=== PATIENT | female | born 1945 | race Caucasian/White ===

== ENCOUNTER 2016-11-19 15:24 | Inpatient (IN) | payer MEDICARE ==
[~2016-11-19] VITALS: Ht 162.6 cm; Wt 61.1 kg
[~2016-11-19 15:24] MED LIST: ASPI-621 PO; ATOR10TA PO; ATOR20TA9 PO; CARV12.52 PO; CARV6.252 PO; HYDR25TA6 PO; LEVO25TA2 PO; LISI-167 PO; LISI-170 PO; LISI1TAB7 PO; OMEP20TA62 PO
[2016-11-19] MEDS ORDERED: SODIUM CHLORIDE 0.9% 1,000ML IVBOLUS ONE (16:00)
[2016-11-19] MEDS ORDERED: SODIUM CHLORIDE FLUSH 10ML SYR IVF ONE ×2 (16:00→19:00)
[2016-11-19] MEDS ORDERED: PLEASE ENTER WEIGHT MC SCH (16:30)
[2016-11-19 16:40] LABS: BLOOD UREA NITROGEN 22 mg/dL (7-18)
[2016-11-19 16:44] LABS: HEMOGLOBIN 11.9 g/dL (11.7-16.4)
[2016-11-19 16:45] LABS: ASPARTATE AMINO TRANSFERASE 14 U/L (15-37)
[2016-11-19 17:00] LABS: IS PT STATUS REG ER OR PRE ER? YES
[2016-11-19] MEDS ORDERED: POTASSIUM CHLORIDE 40 MEQ in SODIUM CHLORIDE 0.9% 1,000 ML IV ONE (17:07)
[2016-11-19] MEDS ORDERED: POTASSIUM CHLORIDE 20 MEQ TAB.ER.PRT ONE (17:18)
[2016-11-19] MEDS ORDERED: NS + 40MEQ KCL 1,000 ML IV ONE (17:18)
[2016-11-19] MEDS ORDERED: POTASSIUM CHLORIDE 20 MEQ TAB.ER.PRT PO ONE (17:30)
[2016-11-19] MEDS ORDERED: MAGNESIUM SULFATE 1 GM in SODIUM CHLORIDE 0.9% 50 ML IV ONE (17:30)
[2016-11-19] MEDS ORDERED: CALCIUM GLUCONATE 4.6 MEQ in SODIUM CHLORIDE 0.9% 50 ML IV SCH (18:00)
[2016-11-19] MEDS ORDERED: CALCIUM GLUCONATE 0.46MEQ/1ML IVPush ONE (18:00)
[2016-11-19 20:19] VITALS: BP 150/63
[2016-11-19] MEDS ORDERED: ACETAMINOPHEN 325 MG TABLET PO PRN (21:00)
[2016-11-19] MEDS: ENOXAPARIN 40 MG/0.4 ML SQ SCH (21:00)
[2016-11-19] MEDS ORDERED: TEMAZEPAM 15 MG CAPSULE PO PRN (21:00)
[2016-11-19] MEDS: ATORVASTATIN 20 MG TABLET PO SCH (21:00)
[2016-11-19 21:52] LABS: IS PT STATUS REG ER OR PRE ER? NO
[2016-11-19 22:21] VITALS: BP 150/63
[2016-11-20 02:04] VITALS: BP 155/63
[2016-11-20 02:57] LABS: HEMOGLOBIN 10.7 g/dL (11.7-16.4)
[2016-11-20 03:10] LABS: ASPARTATE AMINO TRANSFERASE 9 U/L (15-37); BLOOD UREA NITROGEN 18 mg/dL (7-18)
[2016-11-20 03:13] LABS: IS PT STATUS REG ER OR PRE ER? NO
[2016-11-20] MEDS ORDERED: CALCIUM GLUCONATE 0.46MEQ/1ML IVPush ONE (04:00)
[2016-11-20] MEDS ORDERED: MAGNESIUM SULFATE 1 GM in SODIUM CHLORIDE 0.9% 50 ML IV ONE (04:30)
[2016-11-20] MEDS ORDERED: CALCIUM GLUCONATE 4.6 MEQ in SODIUM CHLORIDE 0.9% 50 ML IV ONE (04:30)
[2016-11-20] MEDS: ASPIRIN 81 MG TABLET EC PO SCH (05:28)
[2016-11-20] MEDS: POTASSIUM CHLORIDE 20 MEQ TAB.ER.PRT PO SCH ×3 (05:28→16:00)
[2016-11-20 06:36] VITALS: BP 119/61
[2016-11-20] MEDS ORDERED: HYDROCHLOROTHIAZIDE 25 MG TABLET PO SCH (09:00)
[2016-11-20] MEDS: CALCIUM CARBONATE 500 MG TABLET PO SCH ×2 (09:08→21:06)
[2016-11-20] MEDS: LISINOPRIL 20 MG TABLET PO SCH (09:09)
[2016-11-20] MEDS: CARVEDILOL 6.25 MG TABLET PO SCH ×2 (09:09→17:00)
[2016-11-20 09:50] LABS: IS PT STATUS REG ER OR PRE ER? NO
[2016-11-20] MEDS: NS + 40MEQ KCL 1,000 ML IV SCH (11:30)
[2016-11-20 12:38] VITALS: BP 132/68
[2016-11-20 17:27] LABS: BLOOD UREA NITROGEN 16 mg/dL (7-18)
[2016-11-20 17:33] LABS: IS PT STATUS REG ER OR PRE ER? NO
[2016-11-20 18:56] VITALS: BP 150/65
[2016-11-20] MEDS: ENOXAPARIN 40 MG/0.4 ML SQ SCH (21:06)
[2016-11-20] MEDS: ATORVASTATIN 20 MG TABLET PO SCH (21:06)
[2016-11-20 21:25] LABS: IS PT STATUS REG ER OR PRE ER? NO
[2016-11-21] MEDS: NS + 40MEQ KCL 1,000 ML IV SCH ×2 (01:11→20:21)
[2016-11-21 02:04] VITALS: BP 144/75
[2016-11-21] MEDS: ASPIRIN 81 MG TABLET EC PO SCH (04:51)
[2016-11-21 06:48] VITALS: BP 152/69
[2016-11-21] MEDS: CARVEDILOL 6.25 MG TABLET PO SCH ×2 (08:00→17:00)
[2016-11-21] MEDS: THIAMINE 100MG TABLET PO SCH (09:47)
[2016-11-21] MEDS: LISINOPRIL 20 MG TABLET PO SCH (09:48)
[2016-11-21] MEDS: CALCIUM CARBONATE 500 MG TABLET PO SCH ×2 (09:48→20:22)
[2016-11-21 12:34] VITALS: BP 157/73
[2016-11-21 19:07] VITALS: BP 133/70
[2016-11-21] MEDS: ATORVASTATIN 20 MG TABLET PO SCH (20:21)
[2016-11-21] MEDS: ENOXAPARIN 40 MG/0.4 ML SQ SCH (20:22)
[2016-11-22 01:13] VITALS: BP 151/57
[2016-11-22] MEDS: ASPIRIN 81 MG TABLET EC PO SCH (06:07)
[2016-11-22 06:51] VITALS: BP 152/68
[2016-11-22] MEDS: LISINOPRIL 20 MG TABLET PO SCH (08:38)
[2016-11-22] MEDS: CALCIUM CARBONATE 500 MG TABLET PO SCH (08:38)
[2016-11-22] MEDS: THIAMINE 100MG TABLET PO SCH (08:38)
[2016-11-22 08:51] LABS: BLOOD UREA NITROGEN 8 mg/dL (7-18)
[2016-11-22] MEDS ORDERED: AMLODIPINE 5 MG TABLET PO SCH (09:00)
[2016-11-22] MEDS ORDERED: AMLO5TAB2 PO (12:40)
== END 2016-11-22 14:47 | disposition home health service (06) | DRG 640 ==
LOC: ED 17:59 → EDIP 18:10 → 4WST 18:47 → 4EST 11-22 08:38 → DCLOUNGE 11-22 14:19
PROVIDERS: ADMIT Internal Medicine; ATTEND Internal Medicine
DX: E87.6 Hypokalemia (principal); G93.41 Metabolic encephalopathy; Q21.1 Atrial septal defect; Q21.0 Ventricular septal defect; I24.8 Other forms of acute ischemic heart disease; E83.51 Hypocalcemia; I12.9 Hypertensive chronic kidney disease with stage 1 through stage 4 chronic kidney disease, or unspecified chronic kidney disease; I25.10 Atherosclerotic heart disease of native coronary artery without angina pectoris; N18.9 Chronic kidney disease, unspecified; R06.4 Hyperventilation; F41.9 Anxiety disorder, unspecified; Z86.73 Personal history of transient ischemic attack (TIA), and cerebral infarction without residual deficits; Z82.49 Family history of ischemic heart disease and other diseases of the circulatory system; Z83.3 Family history of diabetes mellitus; Z88.5 Allergy status to narcotic agent; E87.8 Other disorders of electrolyte and fluid balance, not elsewhere classified
CPT/HCPCS: 36415; 80048; 80053; 81003; 82140; 82150; 82306; 82310; 82330; 82570; 82652; 83690; 83735; 83970; 84100; 84300; 84439; 84443; 84484; 85025; 93005; 96361; 96365; J0610; J1650; J3475; J3480; J7030

== ENCOUNTER → 2016-11-25 | Outpatient (CLI) | payer MEDICARE ==
[~2016-11-25] MED LIST changes: +AMLO5TAB2 PO
[2016-11-25 09:53] LABS: BLOOD UREA NITROGEN 12 mg/dL (7-18)
[2016-11-25 10:04] LABS: ASPARTATE AMINO TRANSFERASE 14 U/L (15-37)
[2016-11-25 10:25] LABS: HEMOGLOBIN 12.7 g/dL (11.7-16.4)
[2016-11-25 10:26] LABS: DIFF TOTAL CELLS COUNTED 100 CELL DIFF
[2016-11-25 10:29] LABS: VERIFY COUNTS? YES
== END | disposition home or self-care (01) ==
LOC: LAB 08:54
PROVIDERS: ATTEND Registered Nurse
DX: E78.5 Hyperlipidemia, unspecified (principal); E83.51 Hypocalcemia; E87.6 Hypokalemia; I10 Essential (primary) hypertension
CPT/HCPCS: 36415; 80053; 80061; 82306; 84436; 84443; 84481; 85025

== ENCOUNTER 2017-08-03 15:31 | Observation (INO) | payer MEDICARE ==
[~2017-08-03] VITALS: Ht 162.6 cm; Wt 58.0 kg
[2017-08-03] MEDS ORDERED: MORPHINE SULFATE 4 MG/ML, 1ML IVPush PRN (16:00)
[2017-08-03] MEDS ORDERED: PLEASE ENTER ALLERGIES MC SCH ×2 (16:00)
[2017-08-03] MEDS ORDERED: PLEASE ENTER HEIGHT AND WEIGHT MC SCH (16:00)
[2017-08-03] MEDS ORDERED: SODIUM CHLORIDE FLUSH 10ML SYR IVF ONE (16:00)
[2017-08-03] MEDS ORDERED: MORPHINE SULFATE 4 MG/ML, 1ML ONE (16:06)
[2017-08-03 16:11] LABS: HEMATOCRIT 38.2 % (34.6-47.8); HEMOGLOBIN 12.8 g/dL (11.7-16.4); WHITE BLOOD COUNT 7.4 x10^3/uL (3.4-10)
[2017-08-03 16:24] LABS: BLOOD UREA NITROGEN 21 mg/dL (7-18)
[2017-08-03 16:29] LABS: ASPARTATE AMINO TRANSFERASE 6 U/L (15-37); IS PT STATUS REG ER OR PRE ER? YES
[2017-08-03] MEDS ORDERED: hydrALAzine 20 MG/ML, 1ML IVPush PRN (20:00)
[2017-08-03] MEDS ORDERED: ONDANSETRON ODT 4 MG PO PRN (20:00)
[2017-08-03] MEDS ORDERED: POTASSIUM CHLORIDE 20 MEQ TAB.ER.PRT PO ONE (20:00)
[2017-08-03] MEDS ORDERED: ACETAMINOPHEN 325 MG TABLET PO PRN (20:00)
[2017-08-03] MEDS ORDERED: NITROGLYCERIN 0.4 MG BOTTLE (25 TABS) SL PRN (20:00)
[2017-08-03] MEDS ORDERED: DIPHENHYDRAMINE 25 MG CAPSULE PO PRN (20:00)
[2017-08-03] MEDS ORDERED: KETOROLAC 30 MG/1 ML IM PRN (20:00)
[2017-08-03] MEDS ORDERED: DOCUSATE 100 MG CAPSULE PO PRN (20:00)
[2017-08-03] MEDS ORDERED: MAGNESIUM SULFATE PMX 4GM/100M 100 ML IV ONE (21:00)
[2017-08-03 22:17] LABS: IS PT STATUS REG ER OR PRE ER? YES
[2017-08-03 22:36] VITALS: BP 107/58
[2017-08-03] MEDS: ENOXAPARIN 40 MG/0.4 ML SQ SCH (22:56)
[2017-08-03] MEDS: ATORVASTATIN 20 MG TABLET PO SCH (22:56)
[2017-08-03 23:42] VITALS: BP 107/58
[2017-08-04 01:21] VITALS: BP 93/57
[2017-08-04 04:43] LABS: HEMATOCRIT 34.1 % (34.6-47.8); HEMOGLOBIN 11.5 g/dL (11.7-16.4); WHITE BLOOD COUNT 6.8 x10^3/uL (3.4-10)
[2017-08-04 04:50] LABS: BLOOD UREA NITROGEN 21 mg/dL (7-18)
[2017-08-04 04:57] LABS: IS PT STATUS REG ER OR PRE ER? NO
[2017-08-04 06:31] VITALS: BP 92/47
[2017-08-04] MEDS ORDERED: MAGNESIUM SULFATE PMX 2GM/50ML 50 ML IV ONE (08:30)
[2017-08-04] MEDS ORDERED: HYDROCHLOROTHIAZIDE 25 MG TABLET PO SCH (09:00)
[2017-08-04] MEDS ORDERED: AMLODIPINE 5 MG TABLET PO SCH (09:00)
[2017-08-04] MEDS: ASPIRIN 81 MG TABLET EC PO SCH (09:33)
[2017-08-04] MEDS: MAGNESIUM OXIDE 400 MG TABLET PO SCH ×2 (09:33→22:18)
[2017-08-04] MEDS: OMEPRAZOLE 20 MG CAPSULE.DR PO SCH (09:33)
[2017-08-04] MEDS: POTASSIUM CHLORIDE 10 MEQ in SODIUM CHLORIDE 0.9% 1,000 ML IV SCH (09:33)
[2017-08-04] MEDS ORDERED: LIDOCAINE 1%, 20ML ONE (10:09)
[2017-08-04 12:29] VITALS: BP 88/48
[2017-08-04 15:00] VITALS: BP 86/44
[2017-08-04] MEDS ORDERED: SODIUM CHLORIDE 0.9% 500 ML IV SCH (15:30)
[2017-08-04 16:30] VITALS: BP 92/54
[2017-08-04 19:33] VITALS: BP 94/51
[2017-08-04] MEDS: ATORVASTATIN 20 MG TABLET PO SCH (22:18)
[2017-08-04] MEDS: ENOXAPARIN 40 MG/0.4 ML SQ SCH (22:19)
[2017-08-05 01:02] VITALS: BP 97/55
[2017-08-05] MEDS: POTASSIUM CHLORIDE 10 MEQ in SODIUM CHLORIDE 0.9% 1,000 ML IV SCH ×2 (02:00→08:41)
[2017-08-05 05:21] LABS: ASPARTATE AMINO TRANSFERASE 10 U/L (15-37); BLOOD UREA NITROGEN 25 mg/dL (7-18)
[2017-08-05 05:23] LABS: HEMATOCRIT 33.5 % (34.6-47.8); HEMOGLOBIN 11.3 g/dL (11.7-16.4); WHITE BLOOD COUNT 7.2 x10^3/uL (3.4-10)
[2017-08-05 06:27] VITALS: BP 108/56
[2017-08-05] MEDS: MAGNESIUM OXIDE 400 MG TABLET PO SCH (08:40)
[2017-08-05] MEDS: OMEPRAZOLE 20 MG CAPSULE.DR PO SCH (08:40)
[2017-08-05] MEDS: ASPIRIN 81 MG TABLET EC PO SCH (08:40)
[2017-08-05 12:57] VITALS: BP 94/65
== END 2017-08-05 14:05 | disposition home or self-care (01) ==
LOC: ED 16:13 → INTOOBSV 18:20 → EDIP 18:20 → 5SO 22:20
PROVIDERS: ADMIT Surgery; ATTEND Surgery
DX: I25.10 Atherosclerotic heart disease of native coronary artery without angina pectoris (principal); E87.6 Hypokalemia; E83.42 Hypomagnesemia; I13.10 Hypertensive heart and chronic kidney disease without heart failure, with stage 1 through stage 4 chronic kidney disease, or unspecified chronic kidney disease; N18.9 Chronic kidney disease, unspecified; D64.9 Anemia, unspecified; E04.2 Nontoxic multinodular goiter; I08.0 Rheumatic disorders of both mitral and aortic valves; I25.2 Old myocardial infarction; I47.1 Supraventricular tachycardia; K21.9 Gastro-esophageal reflux disease without esophagitis; K44.9 Diaphragmatic hernia without obstruction or gangrene; Q21.0 Ventricular septal defect; Z83.3 Family history of diabetes mellitus; Z86.73 Personal history of transient ischemic attack (TIA), and cerebral infarction without residual deficits
CPT/HCPCS: 36415; 38505; 71010; 71250; 76942; 80048; 80053; 83735; 83880; 84484; 85025; 85379; 85610; 85730; 87040; 88184; 88185; 88305; 88342; 93005; 93306; 96365; 96366; 96367; 96372; 96375; 99285; G0378; J1650; J1885; J3475; J3480; J3490; J7030; J7040; G0461

== ENCOUNTER 2018-01-20 09:39 | Inpatient (IN) | payer MEDICARE ==
[~2018-01-20] VITALS: Ht 157.5 cm; Wt 64.6 kg
[2018-01-20] MEDS ORDERED: METO25TA35 PO (09:50)
[2018-01-20] MEDS ORDERED: ONDANSETRON ODT 4 MG ONE (10:19)
[2018-01-20] MEDS ORDERED: MORPHINE SULFATE 4 MG/ML, 1ML ONE ×3 (10:19→13:29)
[2018-01-20] MEDS: MORPHINE SULFATE 4 MG/ML, 1ML IVPush PRN ×2 (10:23→11:01)
[2018-01-20] MEDS ORDERED: ONDANSETRON ODT 4 MG PO ONE (10:30)
[2018-01-20] MEDS ORDERED: SODIUM CHLORIDE FLUSH 10ML SYR IVF ONE (10:30)
[2018-01-20 11:23] LABS: BASOPHILS # (AUTO) 0.06 x10^3/uL (0-0.1); BASOPHILS % (AUTO) 1 % (0-1); EOSINOPHILS % (AUTO) 3 % (1-7); LYMPHOCYTES # (AUTO) 1.22 x10^3/uL (1-3.4); LYMPHOCYTES % (AUTO) 11 % (22-44); MD NO; MEAN CORPUSCULAR HEMOGLOBIN 30.3 pg (27.0-34.8); MEAN CORPUSCULAR HGB CONC 32.7 g/dL (32.4-35.8); MEAN CORPUSCULAR VOLUME 92.6 fL (80-100); MEAN PLATELET VOLUME 11.2 fL (7.4-10.4); MONOCYTES # (AUTO) 0.79 x10^3/uL (0.2-0.8); MONOCYTES % (AUTO) 7 % (2-9); NEUTROPHILS # (AUTO) 9.09 x10^3/uL (1.8-6.8); NEUTROPHILS % (AUTO) 79 % (42-75); PLATELET COUNT 216 x10^3/uL (130-400); RED BLOOD COUNT 4.22 x10^6/uL (3.82-5.3); RED CELL DISTRIBUTION WIDTH 15.2 % (9.6-15.2)
[2018-01-20 11:33] LABS: ALBUMIN 3.4 g/dL (3.4-5.0); ANION GAP 7 mmol/L (5-15); CALCIUM 7.6 mg/dL (8.5-10.1); CHLORIDE 107 mmol/L (98-107)
[2018-01-20 11:36] LABS: ALANINE AMINOTRANSFERASE 15 U/L (12-78); ALKALINE PHOSPHATASE 73 U/L (45-117); BILIRUBIN,TOTAL 0.8 mg/dL (0.2-1.0); CREATININE 1.01 mg/dL (0.55-1.02); TOTAL PROTEIN 6.5 g/dL (6.4-8.2)
[2018-01-20] MEDS ORDERED: SODIUM CHLORIDE 0.9% 1,000 ML IV ONE (11:48)
[2018-01-20 11:50] LABS: INTERNATIONAL NORMALIZED RATIO 1.05 (0.93-1.1); PROTHROMBIN TIME 10.8 Seconds (9.6-11.5)
[2018-01-20] MEDS ORDERED: SODIUM CHLORIDE FLUSH 10ML SYR IVF PRN (12:00)
[2018-01-20] MEDS ORDERED: DOCUSATE 100 MG CAPSULE PO PRN (13:30)
[2018-01-20] MEDS ORDERED: ONDANSETRON 2MG/ML, 2ML IVPush PRN (13:30)
[2018-01-20] MEDS ORDERED: MORPHINE SULFATE 4 MG/ML, 1ML IVPush ONE (13:30)
[2018-01-20] MEDS ORDERED: hydrALAzine 20 MG/ML, 1ML IVPush PRN (13:30)
[2018-01-20] MEDS ORDERED: GUAIFENESIN/DM 200-20MG, 10ML UDC PO PRN (14:00)
[2018-01-20 14:08] VITALS: BP 179/78
[2018-01-20] MEDS: morphine SULFATE 10 MG/ML, 1ML IVPush PRN ×2 (15:10→17:43)
[2018-01-20] MEDS: D5%-LACTATED RINGERS 1,000 ML IV SCH (15:11)
[2018-01-20] MEDS ORDERED: MIDAZOLAM 1 MG/ML, 2ML ONE (18:01)
[2018-01-20] MEDS ORDERED: FENTANYL PF 100 MCG/2ML ONE (18:01)
[2018-01-20] MEDS ORDERED: EPHEDRINE 50 MG/ML, 1ML ONE (18:27)
[2018-01-20] MEDS ORDERED: CEFAZOLIN 1,000 MG ONE (18:27)
[2018-01-20] MEDS ORDERED: ROCURONIUM 10MG/ML,5ML ONE (18:27)
[2018-01-20] MEDS ORDERED: SUCCINYLCHOLINE 20 MG/ML, 10ML ONE (18:27)
[2018-01-20] MEDS ORDERED: PHENYLEPHRINE 10 MG/ML ONE (18:27)
[2018-01-20] MEDS ORDERED: PROPOFOL 10 MG/ML, 20ML ONE (18:27)
[2018-01-20] MEDS ORDERED: DEXAMETHASONE 4 MG/ML, 1ML ONE (18:27)
[2018-01-20 21:00] VITALS: BP 131/59
[2018-01-20] MEDS: METOPROLOL TARTRATE 25 MG TABLET PO SCH (21:00)
[2018-01-20] MEDS: ATORVASTATIN 20 MG TABLET PO SCH (21:00)
[2018-01-21] VITALS: BP 83/59
[2018-01-21] MEDS: morphine SULFATE 10 MG/ML, 1ML IVPush PRN ×3 (02:54→19:02)
[2018-01-21] MEDS: D5%-LACTATED RINGERS 1,000 ML IV SCH (03:23)
[2018-01-21 04:00] VITALS: BP 100/64
[2018-01-21 05:32] LABS: CHLORIDE 107 mmol/L (98-107)
[2018-01-21] MEDS: ACETAMINOPHEN 325 MG TABLET PO PRN ×2 (05:42→16:22)
[2018-01-21] MEDS: ASPIRIN 81 MG TABLET EC PO SCH (05:42)
[2018-01-21 05:59] LABS: ANION GAP 12 mmol/L (5-15); CALCIUM 6.8 mg/dL (8.5-10.1); CREATININE 1.38 mg/dL (0.55-1.02)
[2018-01-21 06:17] LABS: MD YES; MEAN CORPUSCULAR HEMOGLOBIN 30.9 pg (27.0-34.8); MEAN CORPUSCULAR HGB CONC 32.9 g/dL (32.4-35.8); MEAN CORPUSCULAR VOLUME 93.8 fL (80-100); MEAN PLATELET VOLUME 11.3 fL (7.4-10.4); PLATELET COUNT 219 x10^3/uL (130-400); RED BLOOD COUNT 3.13 x10^6/uL (3.82-5.3); RED CELL DISTRIBUTION WIDTH 15.7 % (9.6-15.2)
[2018-01-21 06:23] LABS: BAND#(MANUAL) 2.32 x10^3/uL; BANDS%(MANUAL) 16 % (0-7); LYMPH#(MANUAL) 1.45 x10^3/uL (1-3.4); LYMPHS% (MANUAL) 10 % (22-44); MONOS#(MANUAL) 0.15 x10^3/uL (0.3-2.7); MONOS% (MANUAL) 1 % (2-9); SEG#(MANUAL) 10.59 x10^3/uL (1.8-6.8); SEGS% (MANUAL) 73 % (42-75)
[2018-01-21 06:24] LABS: <PLATELET ESTIMATE> ADEQUATE; <PLT MORPHOLOGY> NORMAL PLT MORPH; ANISOCYTOSIS 1+
[2018-01-21 06:50] VITALS: BP 95/52
[2018-01-21] MEDS: METOPROLOL TARTRATE 25 MG TABLET PO SCH (08:25)
[2018-01-21] MEDS: OMEPRAZOLE 20 MG CAPSULE.DR PO SCH (08:25)
[2018-01-21] MEDS ORDERED: MAGNESIUM SULFATE PMX 2GM/50ML 50 ML IV ONE (09:00)
[2018-01-21] MEDS ORDERED: ENOXAPARIN 30 MG/0.3 ML SQ SCH (09:00)
[2018-01-21] MEDS ORDERED: ENOXAPARIN 40 MG/0.4 ML SQ SCH (09:00)
[2018-01-21 12:31] VITALS: BP 92/49
[2018-01-21] MEDS: SODIUM CHLORIDE 0.9% 1,000 ML IV SCH ×2 (13:12→20:53)
[2018-01-21] MEDS: CEFAZOLIN 1,000 MG in DEXTROSE 5% 50 ML IV SCH ×2 (13:13→20:52)
[2018-01-21] MEDS: FERROUS SULFATE 325 MG TABLET PO SCH (16:22)
[2018-01-21 16:27] VITALS: BP 102/55
[2018-01-21 20:39] VITALS: BP 96/54
[2018-01-21] MEDS: ATORVASTATIN 20 MG TABLET PO SCH (20:52)
[2018-01-21] MEDS ORDERED: METOPROLOL TARTRATE 25 MG TABLET PO SCH (21:00)
[2018-01-22] MEDS: morphine SULFATE 10 MG/ML, 1ML IVPush PRN (02:06)
[2018-01-22 02:33] VITALS: BP 125/82
[2018-01-22] MEDS: SODIUM CHLORIDE 0.9% 1,000 ML IV SCH (04:52)
[2018-01-22 05:23] LABS: ANION GAP 9 mmol/L (5-15); CALCIUM 6.5 mg/dL (8.5-10.1); CHLORIDE 109 mmol/L (98-107); CREATININE 2.04 mg/dL (0.55-1.02)
[2018-01-22] MEDS: ASPIRIN 81 MG TABLET EC PO SCH (05:47)
[2018-01-22 06:08] LABS: BASOPHILS # (AUTO) 0.03 x10^3/uL (0-0.1); BASOPHILS % (AUTO) 0 % (0-1); EOSINOPHILS # (AUTO) 0.03 x10^3/uL (0-0.4); EOSINOPHILS % (AUTO) 0 % (1-7); LYMPHOCYTES # (AUTO) 1.17 x10^3/uL (1-3.4); LYMPHOCYTES % (AUTO) 13 % (22-44); MD SCAN; MEAN CORPUSCULAR HEMOGLOBIN 30.9 pg (27.0-34.8); MEAN CORPUSCULAR VOLUME 93.7 fL (80-100); MEAN PLATELET VOLUME 11.7 fL (7.4-10.4); MONOCYTES # (AUTO) 0.86 x10^3/uL (0.2-0.8); MONOCYTES % (AUTO) 9 % (2-9); NEUTROPHILS # (AUTO) 7.05 x10^3/uL (1.8-6.8); NEUTROPHILS % (AUTO) 77 % (42-75); PLATELET COUNT 163 x10^3/uL (130-400); RED BLOOD COUNT 2.49 x10^6/uL (3.82-5.3); RED CELL DISTRIBUTION WIDTH 16.5 % (9.6-15.2)
[2018-01-22 06:47] VITALS: BP 102/55
[2018-01-22 07:57] VITALS: BP 126/53
[2018-01-22] MEDS: FERROUS SULFATE 325 MG TABLET PO SCH ×2 (08:02→17:04)
[2018-01-22] MEDS: ACETAMINOPHEN 325 MG TABLET PO PRN ×3 (08:02→23:39)
[2018-01-22] MEDS: OMEPRAZOLE 20 MG CAPSULE.DR PO SCH (08:02)
[2018-01-22] MEDS: METOPROLOL TARTRATE 25 MG TABLET PO SCH ×2 (08:04→21:24)
[2018-01-22] MEDS: HEPARIN 5,000 UNITS/ML, 1ML SQ SCH ×2 (09:58→17:04)
[2018-01-22 11:13] LABS: ALBUMIN 2.4 g/dL (3.4-5.0)
[2018-01-22 11:34] LABS: MICROSCOPIC NOT IND
[2018-01-22 11:36] LABS: CULTURE INDICATED? NO
[2018-01-22 12:01] VITALS: BP 94/49
[2018-01-22 18:45] VITALS: BP 149/65
[2018-01-22] MEDS: ATORVASTATIN 20 MG TABLET PO SCH (21:21)
[2018-01-23] VITALS (11 sets, daily range): BP systolic 100–159; BP diastolic 51–78
[2018-01-23] MEDS: HEPARIN 5,000 UNITS/ML, 1ML SQ SCH ×3 (02:29→18:10)
[2018-01-23 05:05] LABS: BASOPHILS # (AUTO) 0.03 x10^3/uL (0-0.1); BASOPHILS % (AUTO) 0 % (0-1); EOSINOPHILS # (AUTO) 0.12 x10^3/uL (0-0.4); EOSINOPHILS % (AUTO) 2 % (1-7); LYMPHOCYTES # (AUTO) 0.92 x10^3/uL (1-3.4); LYMPHOCYTES % (AUTO) 14 % (22-44); MD NO; MEAN CORPUSCULAR HEMOGLOBIN 30.9 pg (27.0-34.8); MEAN CORPUSCULAR HGB CONC 33.2 g/dL (32.4-35.8); MEAN CORPUSCULAR VOLUME 92.9 fL (80-100); MEAN PLATELET VOLUME 10.9 fL (7.4-10.4); MONOCYTES % (AUTO) 10 % (2-9); NEUTROPHILS # (AUTO) 4.92 x10^3/uL (1.8-6.8); NEUTROPHILS % (AUTO) 74 % (42-75); PLATELET COUNT 143 x10^3/uL (130-400); RED BLOOD COUNT 2.09 x10^6/uL (3.82-5.3); RED CELL DISTRIBUTION WIDTH 16.5 % (9.6-15.2)
[2018-01-23 05:25] LABS: CHLORIDE 114 mmol/L (98-107)
[2018-01-23] MEDS: ASPIRIN 81 MG TABLET EC PO SCH (05:27)
[2018-01-23 06:15] LABS: ANION GAP 12 mmol/L (5-15); CALCIUM 6.5 mg/dL (8.5-10.1); CREATININE 1.14 mg/dL (0.55-1.02)
[2018-01-23] MEDS: OMEPRAZOLE 20 MG CAPSULE.DR PO SCH (07:54)
[2018-01-23] MEDS: METOPROLOL TARTRATE 25 MG TABLET PO SCH ×2 (07:54→21:08)
[2018-01-23] MEDS: FERROUS SULFATE 325 MG TABLET PO SCH ×2 (07:54→16:32)
[2018-01-23] MEDS ORDERED: CALCIUM GLUCONATE 4.6 MEQ in SODIUM CHLORIDE 0.9% 50 ML IV ONE (09:00)
[2018-01-23] MEDS ORDERED: ERGOCALCIFEROL 50,000 UNIT CAPSULE PO SCH (09:00)
[2018-01-23] MEDS: ACETAMINOPHEN 325 MG TABLET PO PRN ×2 (13:34→22:32)
[2018-01-23] MEDS: ATORVASTATIN 20 MG TABLET PO SCH (21:07)
[2018-01-24 00:44] VITALS: BP 161/69
[2018-01-24] MEDS: HEPARIN 5,000 UNITS/ML, 1ML SQ SCH ×2 (02:08→10:25)
[2018-01-24] MEDS: ASPIRIN 81 MG TABLET EC PO SCH (04:46)
[2018-01-24 05:55] LABS: BASOPHILS # (AUTO) 0.03 x10^3/uL (0-0.1); BASOPHILS % (AUTO) 0 % (0-1); EOSINOPHILS # (AUTO) 0.22 x10^3/uL (0-0.4); EOSINOPHILS % (AUTO) 3 % (1-7); LYMPHOCYTES % (AUTO) 17 % (22-44); MD NO; MEAN CORPUSCULAR HEMOGLOBIN 31.3 pg (27.0-34.8); MEAN CORPUSCULAR HGB CONC 34.2 g/dL (32.4-35.8); MEAN CORPUSCULAR VOLUME 91.5 fL (80-100); MEAN PLATELET VOLUME 10.2 fL (7.4-10.4); MONOCYTES # (AUTO) 0.72 x10^3/uL (0.2-0.8); MONOCYTES % (AUTO) 10 % (2-9); NEUTROPHILS % (AUTO) 70 % (42-75); PLATELET COUNT 148 x10^3/uL (130-400); RED BLOOD COUNT 2.71 x10^6/uL (3.82-5.3); RED CELL DISTRIBUTION WIDTH 15.6 % (9.6-15.2)
[2018-01-24 06:03] LABS: ALBUMIN 2.1 g/dL (3.4-5.0); ANION GAP 8 mmol/L (5-15); CALCIUM 6.4 mg/dL (8.5-10.1); CHLORIDE 112 mmol/L (98-107); CREATININE 0.73 mg/dL (0.55-1.02)
[2018-01-24 08:18] VITALS: BP 171/89
[2018-01-24] MEDS: FERROUS SULFATE 325 MG TABLET PO SCH ×2 (08:20→16:53)
[2018-01-24] MEDS: METOPROLOL TARTRATE 25 MG TABLET PO SCH (08:20)
[2018-01-24] MEDS: OMEPRAZOLE 20 MG CAPSULE.DR PO SCH (08:20)
[2018-01-24] MEDS: ACETAMINOPHEN 325 MG TABLET PO PRN ×2 (08:23→13:12)
[2018-01-24] MEDS ORDERED: CALCITRIOL 0.25 MCG CAPSULE PO SCH (10:00)
[2018-01-24] MEDS ORDERED: NEUTRA PHOS K 250 MG TABLET PO SCH (10:00)
[2018-01-24] MEDS ORDERED: METOPROLOL TARTRATE 25 MG TABLET PO SCH (10:00)
[2018-01-24] MEDS ORDERED: METO25TA35 PO (10:13)
[2018-01-24] MEDS ORDERED: CALC0.25 PO (10:13)
[2018-01-24] MEDS ORDERED: ERGO500017 PO (10:13)
[2018-01-24] MEDS ORDERED: ENOX40SY4 SQ (10:15)
[2018-01-24] MEDS ORDERED: ASPI-621 PO (11:21)
[2018-01-24] MEDS ORDERED: ACET325T14 PO (11:22)
[2018-01-24 14:18] VITALS: BP 154/66
== END 2018-01-24 17:08 | DRG 480 ==
LOC: ED 11:23 → EDIP 11:48 → 4NOR 13:51
PROVIDERS: ADMIT Internal Medicine; ATTEND Hospitalist
PROC: 0QS736Z Reposition Left Upper Femur with Intramedullary Internal Fixation Device, Percutaneous Approach (ICD-10-PCS; principal; 2018-01-20 16:45)
PROC: 30233N1 Transfusion of Nonautologous Red Blood Cells into Peripheral Vein, Percutaneous Approach (ICD-10-PCS; 2018-01-23)
DX: S72.142A Displaced intertrochanteric fracture of left femur, initial encounter for closed fracture (principal); E43 Unspecified severe protein-calorie malnutrition; N17.9 Acute kidney failure, unspecified; I95.9 Hypotension, unspecified; E87.2 Acidosis; I13.10 Hypertensive heart and chronic kidney disease without heart failure, with stage 1 through stage 4 chronic kidney disease, or unspecified chronic kidney disease; D62 Acute posthemorrhagic anemia; D72.829 Elevated white blood cell count, unspecified; E20.9 Hypoparathyroidism, unspecified; Z68.26 Body mass index [BMI] 26.0-26.9, adult; I25.10 Atherosclerotic heart disease of native coronary artery without angina pectoris; K21.9 Gastro-esophageal reflux disease without esophagitis; N18.9 Chronic kidney disease, unspecified; W18.39XA Other fall on same level, initial encounter; Y93.89 Activity, other specified; Y92.89 Other specified places as the place of occurrence of the external cause; Y99.8 Other external cause status; Z79.82 Long term (current) use of aspirin; Z79.899 Other long term (current) drug therapy; Z83.3 Family history of diabetes mellitus; Z86.73 Personal history of transient ischemic attack (TIA), and cerebral infarction without residual deficits; Z82.49 Family history of ischemic heart disease and other diseases of the circulatory system
CPT/HCPCS: 36415; 71045; 76000; 76770; 80048; 80053; 81003; 82040; 82306; 82330; 82550; 82570; 82728; 83540; 83550; 83735; 83935; 83970; 84100; 84300; 84550; 85014; 85018; 85025; 85610; 85730; 86850; 86900; 86923; 87205; 93005; 96361; 96374; 96375; 96376; C1713; J0610; J0690; J1100; J1644; J1650; J2250; J2704; J3010; Q0162; J0330; J2270; J2370; J3475; J7030; J7121; P9016

== ENCOUNTER 2019-01-12 08:31 | Inpatient (IN) | payer MEDICARE ==
[~2019-01-12] VITALS: Ht 162.6 cm; Wt 50.4 kg
[~2019-01-12 08:31] MED LIST changes: +ACET325T14 PO; +AMLO-150 PO; -AMLO5TAB2 PO; -ASPI-621 PO; +ASPI81TA45 PO; +ATOR20TA37 PO; -ATOR20TA9 PO; +CALC0.25 PO; +ENOX40SY4 SQ; +ERGO500017 PO; +METO25TA35 PO
[2019-01-12 08:47] LABS: BASOPHILS # (AUTO) 0.05 x10^3/uL (0-0.1); BASOPHILS % (AUTO) 1 % (0-1); EOSINOPHILS # (AUTO) 0.25 x10^3/uL (0-0.4); EOSINOPHILS % (AUTO) 3 % (1-7); LYMPHOCYTES # (AUTO) 2.96 x10^3/uL (1-3.4); LYMPHOCYTES % (AUTO) 33 % (22-44); MD NO; MEAN CORPUSCULAR HEMOGLOBIN 31.6 pg (27.0-34.8); MEAN CORPUSCULAR HGB CONC 31.6 g/dL (32.4-35.8); MEAN CORPUSCULAR VOLUME 100.1 fL (80-100); MEAN PLATELET VOLUME 11.1 fL (7.4-10.4); MONOCYTES # (AUTO) 0.84 x10^3/uL (0.2-0.8); MONOCYTES % (AUTO) 9 % (2-9); NEUTROPHILS # (AUTO) 4.97 x10^3/uL (1.8-6.8); NEUTROPHILS % (AUTO) 55 % (42-75); PLATELET COUNT 140 x10^3/uL (130-400); RED BLOOD COUNT 4.35 x10^6/uL (3.82-5.3); RED CELL DISTRIBUTION WIDTH 14.9 % (9.6-15.2)
[2019-01-12] MEDS ORDERED: SODIUM CHLORIDE FLUSH 10ML SYR IVF ONE (09:00)
--- NOTE | 2019-01-12 09:09 | NUR ---
Pt suddenly alert. AAOx0 but speaking and states "I don't feel well"
[2019-01-12 09:15] LABS: ALANINE AMINOTRANSFERASE 18 U/L (12-78); ALBUMIN 3.9 g/dL (3.4-5.0); ANION GAP 9 mmol/L (5-15); CALCIUM 8.4 mg/dL (8.5-10.1); CHLORIDE 104 mmol/L (98-107); CREATININE 0.84 mg/dL (0.55-1.02)
[2019-01-12] MEDS ORDERED: ASPIRIN 81 MG TABLET CHEW ONE (09:17)
[2019-01-12 09:20] LABS: ALKALINE PHOSPHATASE 83 U/L (45-117); BILIRUBIN,TOTAL 0.6 mg/dL (0.2-1.0); TROPONIN I 0.033 ng/mL (0.000-0.045)
[2019-01-12] MEDS ORDERED: ASPIRIN 81 MG TABLET CHEW PO ONE (09:30)
--- NOTE | 2019-01-12 09:38 | NUR ---
Pt recalls that this has happened to herin the past. That she felt bad and woke up on the hospital. Pt recalls some things but is unable to state her own name, the year, or where she is.
[2019-01-12] MEDS ORDERED: DULO30CA2 PO (10:08)
[2019-01-12] MEDS ORDERED: ALPR0.254 PO (10:08)
[2019-01-12] MEDS ORDERED: FAMO-79 PO (10:08)
[2019-01-12] MEDS ORDERED: FURO20TA3 PO (10:08)
--- NOTE | 2019-01-12 10:08 | NUR ---
Pt now AAOx3. Does not recall year. NAD at this time.
[2019-01-12 10:18] LABS: MICROSCOPIC NOT IND
[2019-01-12 10:24] LABS: CULTURE INDICATED? NO
[2019-01-12] MEDS ORDERED: SODIUM CHLORIDE FLUSH 10ML SYR IVF PRN (10:30)
[2019-01-12] MEDS ORDERED: POTASSIUM CHLORIDE 20 MEQ TAB.ER.PRT PO ONE ×2 (10:30→12:00)
[2019-01-12] MEDS ORDERED: hydrALAzine 20 MG/ML, 1ML IVPush PRN (11:30)
[2019-01-12] MEDS ORDERED: ONDANSETRON ODT 4 MG PO PRN (11:30)
[2019-01-12] MEDS ORDERED: POLYETHYLENE GLYCOL 17 GM PACKET PO PRN (11:30)
[2019-01-12] MEDS ORDERED: ENALAPRILAT 1.25 MG/ML, 2ML IVPush PRN (11:30)
[2019-01-12] MEDS ORDERED: ONDANSETRON 2MG/ML, 2ML IVPush PRN (11:30)
[2019-01-12] MEDS ORDERED: BISACODYL 10 MG SUPP PR PRN (11:30)
[2019-01-12] MEDS ORDERED: DOCUSATE 100 MG CAPSULE PO PRN (11:30)
[2019-01-12] MEDS: PLEASE ENTER HEIGHT MC SCH ×2 (12:00→20:00)
[2019-01-12 12:18] VITALS: BP 185/82
[2019-01-12] MEDS: ENOXAPARIN 40 MG/0.4 ML SQ SCH (16:10)
[2019-01-12 17:46] LABS: TROPONIN I 0.233 ng/mL (0.000-0.045)
[2019-01-12] MEDS: FAMOTIDINE 20 MG TABLET PO SCH (20:46)
[2019-01-12] MEDS: ATORVASTATIN 20 MG TABLET PO SCH (20:46)
[2019-01-12] MEDS: METOPROLOL TARTRATE 25 MG TABLET PO SCH (20:46)
[2019-01-12 21:09] VITALS: BP 176/80
[2019-01-12 21:45] VITALS: BP 154/75
[2019-01-13 01:32] VITALS: BP 133/62
[2019-01-13 01:33] VITALS: BP 118/67
[2019-01-13 01:34] VITALS: BP 110/57
[2019-01-13] MEDS: PLEASE ENTER HEIGHT MC SCH ×2 (04:00→12:00)
[2019-01-13 05:45] LABS: BASOPHILS # (AUTO) 0.04 x10^3/uL (0-0.1); BASOPHILS % (AUTO) 1 % (0-1); EOSINOPHILS # (AUTO) 0.18 x10^3/uL (0-0.4); EOSINOPHILS % (AUTO) 3 % (1-7); LYMPHOCYTES # (AUTO) 1.25 x10^3/uL (1-3.4); LYMPHOCYTES % (AUTO) 20 % (22-44); MD NO; MEAN CORPUSCULAR HEMOGLOBIN 32.3 pg (27.0-34.8); MEAN CORPUSCULAR HGB CONC 32.5 g/dL (32.4-35.8); MEAN CORPUSCULAR VOLUME 99.1 fL (80-100); MEAN PLATELET VOLUME 11.6 fL (7.4-10.4); MONOCYTES # (AUTO) 0.63 x10^3/uL (0.2-0.8); MONOCYTES % (AUTO) 10 % (2-9); NEUTROPHILS # (AUTO) 4.05 x10^3/uL (1.8-6.8); NEUTROPHILS % (AUTO) 66 % (42-75); PLATELET COUNT 164 x10^3/uL (130-400)
[2019-01-13 05:46] LABS: ANION GAP 6 mmol/L (5-15); CALCIUM 8.4 mg/dL (8.5-10.1); CHLORIDE 110 mmol/L (98-107)
[2019-01-13 05:49] LABS: CREATININE 0.78 mg/dL (0.55-1.02)
[2019-01-13] MEDS: ASPIRIN 81 MG TABLET EC PO SCH (06:22)
[2019-01-13] MEDS ORDERED: POTASSIUM CHLORIDE 20 MEQ TAB.ER.PRT PO ONE (07:30)
[2019-01-13 07:54] LABS: TROPONIN I 0.138 ng/mL (0.000-0.045)
[2019-01-13 08:00] VITALS: BP 116/73
[2019-01-13] MEDS: METOPROLOL TARTRATE 25 MG TABLET PO SCH ×2 (08:36→23:05)
[2019-01-13] MEDS: FAMOTIDINE 20 MG TABLET PO SCH ×2 (08:36→23:04)
[2019-01-13] MEDS ORDERED: DULOXETINE 30 MG CAPSULE.DR PO SCH (09:00)
[2019-01-13] MEDS: ENOXAPARIN 40 MG/0.4 ML SQ SCH (12:07)
[2019-01-13 14:52] VITALS: BP 141/66
[2019-01-13 20:28] VITALS: BP 157/67
[2019-01-13] MEDS: ATORVASTATIN 20 MG TABLET PO SCH (23:04)
[2019-01-13] MEDS: OLANZAPINE 2.5 MG TABLET PO SCH (23:05)
[2019-01-14] VITALS (7 sets, daily range): BP systolic 109–157; BP diastolic 61–72
[2019-01-14] MEDS: ASPIRIN 81 MG TABLET EC PO SCH (05:08)
[2019-01-14] MEDS: METOPROLOL TARTRATE 25 MG TABLET PO SCH ×2 (08:28→20:46)
[2019-01-14] MEDS: FAMOTIDINE 20 MG TABLET PO SCH ×2 (08:28→20:45)
[2019-01-14] MEDS: DULOXETINE 30 MG CAPSULE.DR PO SCH (08:28)
[2019-01-14] MEDS: ENOXAPARIN 40 MG/0.4 ML SQ SCH (11:37)
[2019-01-14] MEDS ORDERED: POTASSIUM CHLORIDE 20 MEQ TAB.ER.PRT PO ONE (12:30)
[2019-01-14] MEDS: OLANZAPINE 2.5 MG TABLET PO SCH (20:45)
[2019-01-14] MEDS: ATORVASTATIN 20 MG TABLET PO SCH (20:45)
[2019-01-14] MEDS: ACETAMINOPHEN 325 MG TABLET PO PRN (20:54)
[2019-01-15 01:49] VITALS: BP 112/70
[2019-01-15] MEDS: ASPIRIN 81 MG TABLET EC PO SCH (05:07)
[2019-01-15] MEDS ORDERED: REGADENOSON 0.4 MG/5 ML SYRINGE ONE (07:51)
[2019-01-15 08:14] VITALS: BP 128/78
[2019-01-15] MEDS: DULOXETINE 30 MG CAPSULE.DR PO SCH (08:46)
[2019-01-15] MEDS: FAMOTIDINE 20 MG TABLET PO SCH ×2 (08:46→20:31)
[2019-01-15 11:15] VITALS: BP 138/70
[2019-01-15] MEDS: ACETAMINOPHEN 325 MG TABLET PO PRN (11:30)
[2019-01-15] MEDS: ENOXAPARIN 40 MG/0.4 ML SQ SCH (11:30)
[2019-01-15] MEDS: METOPROLOL TARTRATE 25 MG TABLET PO SCH ×2 (11:33→20:31)
[2019-01-15 15:36] VITALS: BP 121/56
[2019-01-15 19:43] VITALS: BP 114/57
[2019-01-15] MEDS: OLANZAPINE 2.5 MG TABLET PO SCH (20:31)
[2019-01-15] MEDS: ATORVASTATIN 20 MG TABLET PO SCH (20:36)
[2019-01-16 01:27] VITALS: BP 104/58
[2019-01-16] MEDS: ASPIRIN 81 MG TABLET EC PO SCH (05:35)
[2019-01-16 07:32] VITALS: BP 104/58
[2019-01-16] MEDS: FAMOTIDINE 20 MG TABLET PO SCH (08:13)
[2019-01-16] MEDS: METOPROLOL TARTRATE 25 MG TABLET PO SCH (08:14)
[2019-01-16] MEDS: DULOXETINE 30 MG CAPSULE.DR PO SCH (08:14)
[2019-01-16] MEDS ORDERED: OLAN2.5T10 PO (10:16)
[2019-01-16] MEDS ORDERED: ASPI81TA45 PO (10:16)
== END 2019-01-16 11:31 | DRG 281 ==
LOC: ED 10:02 → EDIP 10:03 → INTOOBSV 10:03 → ED 10:29 → 4EST 11:38 → OBSVTOIN 12:18 → 3NW 01-14 05:41 → 3NE 01-15 22:36
PROVIDERS: ADMIT Internal Medicine; ATTEND Internal Medicine
DX: I21.A1 Myocardial infarction type 2 (principal); Q21.0 Ventricular septal defect; E87.6 Hypokalemia; F32.9 Major depressive disorder, single episode, unspecified; F41.9 Anxiety disorder, unspecified; G89.29 Other chronic pain; R07.9 Chest pain, unspecified; R00.2 Palpitations; M54.2 Cervicalgia; M25.552 Pain in left hip; I25.10 Atherosclerotic heart disease of native coronary artery without angina pectoris; I44.7 Left bundle-branch block, unspecified; F01.50 Vascular dementia, unspecified severity, without behavioral disturbance, psychotic disturbance, mood disturbance, and anxiety; I13.10 Hypertensive heart and chronic kidney disease without heart failure, with stage 1 through stage 4 chronic kidney disease, or unspecified chronic kidney disease; K21.9 Gastro-esophageal reflux disease without esophagitis; K44.9 Diaphragmatic hernia without obstruction or gangrene; Z86.73 Personal history of transient ischemic attack (TIA), and cerebral infarction without residual deficits; Z88.5 Allergy status to narcotic agent
CPT/HCPCS: 36415; 70450; 71045; 78452; 80048; 80053; 81003; 82962; 83735; 83880; 84484; 85025; 93005; 93017; 93306; G0378; J1650; J2405; J2785; A9502; C9898

== ENCOUNTER 2019-01-16 10:13 | Inpatient (IN) | payer MEDICARE ==
[~2019-01-16] VITALS: Ht 162.6 cm; Wt 54.1 kg
[~2019-01-16 10:13] MED LIST changes: +ALPR0.254 PO; +DULO30CA2 PO; +FAMO-79 PO; +FURO20TA3 PO
[2019-01-16] MEDS ORDERED: OLAN2.5T10 PO (10:16)
[2019-01-16] MEDS ORDERED: ASPI81TA45 PO (10:16)
[2019-01-16 11:35] VITALS: BP 156/66
[2019-01-16 11:46] VITALS: BP 156/66
[2019-01-16 12:44] LABS: BASOPHILS # (AUTO) 0.04 x10^3/uL (0-0.1); BASOPHILS % (AUTO) 1 % (0-1); EOSINOPHILS # (AUTO) 0.32 x10^3/uL (0-0.4); EOSINOPHILS % (AUTO) 5 % (1-7); LYMPHOCYTES # (AUTO) 1.65 x10^3/uL (1-3.4); LYMPHOCYTES % (AUTO) 23 % (22-44); MD NO; MEAN CORPUSCULAR HEMOGLOBIN 31.6 pg (27.0-34.8); MEAN CORPUSCULAR HGB CONC 31.4 g/dL (32.4-35.8); MEAN CORPUSCULAR VOLUME 100.8 fL (80-100); MEAN PLATELET VOLUME 11.1 fL (7.4-10.4); MONOCYTES # (AUTO) 0.61 x10^3/uL (0.2-0.8); MONOCYTES % (AUTO) 9 % (2-9); NEUTROPHILS # (AUTO) 4.55 x10^3/uL (1.8-6.8); NEUTROPHILS % (AUTO) 63 % (42-75); PLATELET COUNT 159 x10^3/uL (130-400); RED BLOOD COUNT 3.92 x10^6/uL (3.82-5.3); RED CELL DISTRIBUTION WIDTH 14.9 % (9.6-15.2)
[2019-01-16 12:59] LABS: ALBUMIN 3.6 g/dL (3.4-5.0); ANION GAP 7 mmol/L (5-15); CALCIUM 8.1 mg/dL (8.5-10.1); CHLORIDE 106 mmol/L (98-107)
[2019-01-16 13:00] LABS: HCT (SEDRATE) 39.5 % (34.6-47.8)
[2019-01-16 13:26] LABS: ALANINE AMINOTRANSFERASE 19 U/L (12-78); ALKALINE PHOSPHATASE 76 U/L (45-117); BILIRUBIN,TOTAL 0.2 mg/dL (0.2-1.0); CHOL/HDL RATIO 2.7; CHOLESTEROL, TOTAL 135 mg/dL (140-239); CREATININE 0.89 mg/dL (0.55-1.02); HDL CHOL % 37 % (28-40); HDL CHOLESTEROL (DIRECT) 50 mg/dL (40-60); LDL CHOLESTEROL,CALCULATED 62 mg/dL (54-169); LDL/HDL RATIO 1.2 (0.5-3.0); TRIGLYCERIDES 114 mg/dL (50-200); VLDL CHOLESTEROL 23 mg/dL (0-25)
[2019-01-16] MEDS ORDERED: POLYETHYLENE GLYCOL 17 GM PACKET PO PRN (16:30)
[2019-01-16] MEDS ORDERED: BISACODYL 10 MG SUPP PR PRN (16:30)
[2019-01-16] MEDS ORDERED: DOCUSATE 100 MG CAPSULE PO PRN (16:30)
[2019-01-16 16:46] LABS: MICROSCOPIC AUTO
[2019-01-16 16:53] LABS: CULTURE INDICATED? YES
[2019-01-16 19:49] VITALS: BP 142/70
[2019-01-17 07:26] VITALS: BP 143/76
[2019-01-17] MEDS: CITALOPRAM 20 MG TABLET PO SCH (08:53)
[2019-01-17] MEDS: ACETAMINOPHEN 325 MG TABLET PO PRN ×2 (08:53→19:51)
[2019-01-17 19:56] VITALS: BP 128/73
[2019-01-18 07:04] VITALS: BP 146/65
[2019-01-18 07:06] VITALS: BP 166/89
[2019-01-18] MEDS: CITALOPRAM 20 MG TABLET PO SCH (08:36)
[2019-01-18] MEDS: ACETAMINOPHEN 325 MG TABLET PO PRN ×2 (08:36→20:14)
[2019-01-18 19:45] VITALS: BP 148/72
[2019-01-18] MEDS ORDERED: ONDANSETRON ODT 4 MG ONE (22:52)
[2019-01-18] MEDS ORDERED: ONDANSETRON ODT 4 MG PO PRN (23:00)
[2019-01-18 23:08] VITALS: BP 127/74
[2019-01-18] MEDS: TRAZODONE 50MG TABLET PO SCH (23:48)
[2019-01-19] MEDS ORDERED: TRAZODONE 50MG TABLET PO SCH
[2019-01-19] MEDS ORDERED: SIMETHICONE 80 MG CHEW TAB PO PRN
[2019-01-19] MEDS: ASPIRIN 81 MG TABLET CHEW PO SCH ×2 (06:00→08:32)
[2019-01-19] MEDS: METOPROLOL TARTRATE 25 MG TABLET PO SCH ×2 (06:00→18:21)
[2019-01-19 07:23] VITALS: BP 136/61
[2019-01-19] MEDS: FAMOTIDINE 20 MG TABLET PO SCH ×2 (08:32→20:39)
[2019-01-19] MEDS: CITALOPRAM 20 MG TABLET PO SCH (08:32)
[2019-01-19 18:00] VITALS: BP 129/73
[2019-01-19 19:54] VITALS: BP 101/58
[2019-01-19] MEDS: TRAZODONE 50MG TABLET PO SCH (20:39)
[2019-01-19] MEDS: ATORVASTATIN 20 MG TABLET PO SCH (20:39)
[2019-01-19] MEDS: ACETAMINOPHEN 325 MG TABLET PO PRN (22:03)
[2019-01-20] MEDS: METOPROLOL TARTRATE 25 MG TABLET PO SCH ×2 (05:06→17:46)
[2019-01-20 05:52] LABS: BASOPHILS # (AUTO) 0.04 x10^3/uL (0-0.1); BASOPHILS % (AUTO) 1 % (0-1); EOSINOPHILS # (AUTO) 0.37 x10^3/uL (0-0.4); EOSINOPHILS % (AUTO) 6 % (1-7); LYMPHOCYTES # (AUTO) 1.31 x10^3/uL (1-3.4); LYMPHOCYTES % (AUTO) 22 % (22-44); MD NO; MEAN CORPUSCULAR HEMOGLOBIN 32.6 pg (27.0-34.8); MEAN CORPUSCULAR HGB CONC 32.8 g/dL (32.4-35.8); MEAN CORPUSCULAR VOLUME 99.5 fL (80-100); MONOCYTES # (AUTO) 0.63 x10^3/uL (0.2-0.8); MONOCYTES % (AUTO) 10 % (2-9); NEUTROPHILS # (AUTO) 3.74 x10^3/uL (1.8-6.8); NEUTROPHILS % (AUTO) 62 % (42-75); PLATELET COUNT 139 x10^3/uL (130-400); RED CELL DISTRIBUTION WIDTH 15.1 % (9.6-15.2)
[2019-01-20 07:05] VITALS: BP 128/61
[2019-01-20] MEDS: ASPIRIN 81 MG TABLET CHEW PO SCH (09:00)
[2019-01-20] MEDS: CITALOPRAM 20 MG TABLET PO SCH (09:08)
[2019-01-20] MEDS: FAMOTIDINE 20 MG TABLET PO SCH ×2 (09:08→20:03)
[2019-01-20 15:24] VITALS: BP 114/64
[2019-01-20] MEDS: ACETAMINOPHEN 325 MG TABLET PO PRN (17:46)
[2019-01-20 19:40] VITALS: BP 126/53
[2019-01-20] MEDS: TRAZODONE 50MG TABLET PO SCH (20:03)
[2019-01-20] MEDS: ATORVASTATIN 20 MG TABLET PO SCH (20:03)
[2019-01-21 07:24] VITALS: BP 147/65
[2019-01-21] MEDS ORDERED: METOPROLOL TARTRATE 25 MG TABLET ONE (09:27)
[2019-01-21] MEDS: ACETAMINOPHEN 325 MG TABLET PO PRN (09:28)
[2019-01-21] MEDS: ASPIRIN 81 MG TABLET CHEW PO SCH (09:28)
[2019-01-21] MEDS: CITALOPRAM 20 MG TABLET PO SCH (09:28)
[2019-01-21] MEDS: FAMOTIDINE 20 MG TABLET PO SCH ×2 (09:28→20:14)
[2019-01-21] MEDS: METOPROLOL TARTRATE 25 MG TABLET PO SCH ×2 (09:29→20:14)
[2019-01-21 19:39] VITALS: BP 146/63
[2019-01-21] MEDS: TRAZODONE 50MG TABLET PO SCH (20:15)
[2019-01-21] MEDS: ATORVASTATIN 20 MG TABLET PO SCH (20:15)
[2019-01-22 07:19] VITALS: BP 133/66
[2019-01-22] MEDS: FAMOTIDINE 20 MG TABLET PO SCH ×2 (08:40→20:34)
[2019-01-22] MEDS: CITALOPRAM 20 MG TABLET PO SCH (08:40)
[2019-01-22] MEDS: ASPIRIN 81 MG TABLET CHEW PO SCH (08:40)
[2019-01-22] MEDS: METOPROLOL TARTRATE 25 MG TABLET PO SCH ×2 (08:40→20:34)
[2019-01-22 09:40] VITALS: BP 126/66
[2019-01-22 19:23] VITALS: BP 157/66
[2019-01-22] MEDS: ATORVASTATIN 20 MG TABLET PO SCH (20:34)
[2019-01-22] MEDS: TRAZODONE 50MG TABLET PO SCH (20:34)
[2019-01-23] MEDS: ACETAMINOPHEN 325 MG TABLET PO PRN ×2 (06:29→08:52)
[2019-01-23 07:10] VITALS: BP 148/66
[2019-01-23] MEDS: CITALOPRAM 20 MG TABLET PO SCH (08:52)
[2019-01-23] MEDS: FAMOTIDINE 20 MG TABLET PO SCH ×2 (08:52→20:33)
[2019-01-23] MEDS: METOPROLOL TARTRATE 25 MG TABLET PO SCH ×2 (08:52→20:33)
[2019-01-23] MEDS: ASPIRIN 81 MG TABLET CHEW PO SCH (08:52)
[2019-01-23 19:56] VITALS: BP 139/61
[2019-01-23] MEDS: TRAZODONE 50MG TABLET PO SCH (20:32)
[2019-01-23] MEDS: ATORVASTATIN 20 MG TABLET PO SCH (20:33)
[2019-01-24 07:09] VITALS: BP 158/73
[2019-01-24] MEDS: METOPROLOL TARTRATE 25 MG TABLET PO SCH ×2 (09:40→20:41)
[2019-01-24] MEDS: ASPIRIN 81 MG TABLET CHEW PO SCH (09:40)
[2019-01-24] MEDS: FAMOTIDINE 20 MG TABLET PO SCH ×2 (09:40→20:41)
[2019-01-24] MEDS: CITALOPRAM 20 MG TABLET PO SCH (09:40)
[2019-01-24 20:00] VITALS: BP 170/64
[2019-01-24] MEDS: TRAZODONE 50MG TABLET PO SCH (20:41)
[2019-01-24] MEDS: ATORVASTATIN 20 MG TABLET PO SCH (20:41)
[2019-01-24] MEDS: ACETAMINOPHEN 325 MG TABLET PO PRN (22:03)
[2019-01-25] MEDS: ACETAMINOPHEN 325 MG TABLET PO PRN ×2 (06:03→21:09)
[2019-01-25 07:20] VITALS: BP 145/60
[2019-01-25] MEDS: ASPIRIN 81 MG TABLET CHEW PO SCH (08:17)
[2019-01-25] MEDS: FAMOTIDINE 20 MG TABLET PO SCH ×2 (08:17→20:03)
[2019-01-25] MEDS: METOPROLOL TARTRATE 25 MG TABLET PO SCH ×2 (08:17→20:03)
[2019-01-25] MEDS: CITALOPRAM 20 MG TABLET PO SCH (08:22)
[2019-01-25 19:45] VITALS: BP 141/80
[2019-01-25] MEDS: TRAZODONE 50MG TABLET PO SCH (20:03)
[2019-01-25] MEDS: ATORVASTATIN 20 MG TABLET PO SCH (20:03)
[2019-01-26 07:10] VITALS: BP 129/66
[2019-01-26] MEDS: METOPROLOL TARTRATE 25 MG TABLET PO SCH ×2 (08:33→20:35)
[2019-01-26] MEDS: ASPIRIN 81 MG TABLET CHEW PO SCH (08:33)
[2019-01-26] MEDS: CITALOPRAM 20 MG TABLET PO SCH (08:33)
[2019-01-26] MEDS: FAMOTIDINE 20 MG TABLET PO SCH ×2 (08:33→20:36)
[2019-01-26 19:29] VITALS: BP 170/70
[2019-01-26] MEDS: ACETAMINOPHEN 325 MG TABLET PO PRN (20:35)
[2019-01-26] MEDS: TRAZODONE 50MG TABLET PO SCH (20:36)
[2019-01-26] MEDS: ATORVASTATIN 20 MG TABLET PO SCH (20:36)
[2019-01-26 21:30] VITALS: BP 132/57
[2019-01-27 07:00] VITALS: BP 148/67
[2019-01-27] MEDS: CITALOPRAM 20 MG TABLET PO SCH (08:43)
[2019-01-27] MEDS: FAMOTIDINE 20 MG TABLET PO SCH ×2 (08:43→20:24)
[2019-01-27] MEDS: ASPIRIN 81 MG TABLET CHEW PO SCH (08:44)
[2019-01-27] MEDS: METOPROLOL TARTRATE 25 MG TABLET PO SCH ×2 (08:44→20:24)
[2019-01-27] MEDS: ACETAMINOPHEN 325 MG TABLET PO PRN (09:02)
[2019-01-27 19:50] VITALS: BP 172/80
[2019-01-27] MEDS: ATORVASTATIN 20 MG TABLET PO SCH (20:24)
[2019-01-27] MEDS: TRAZODONE 50MG TABLET PO SCH (20:24)
[2019-01-28 07:08] VITALS: BP 159/72
[2019-01-28] MEDS: CITALOPRAM 20 MG TABLET PO SCH (08:33)
[2019-01-28] MEDS: METOPROLOL TARTRATE 25 MG TABLET PO SCH ×2 (08:33→20:18)
[2019-01-28] MEDS: ASPIRIN 81 MG TABLET CHEW PO SCH (08:33)
[2019-01-28] MEDS: FAMOTIDINE 20 MG TABLET PO SCH ×2 (08:33→20:17)
[2019-01-28] MEDS ORDERED: CITA20TA9 PO (14:46)
[2019-01-28] MEDS ORDERED: TRAZ50TA66 PO (14:46)
[2019-01-28 19:37] VITALS: BP 149/67
[2019-01-28] MEDS: TRAZODONE 50MG TABLET PO SCH (20:18)
[2019-01-28] MEDS: ATORVASTATIN 20 MG TABLET PO SCH (20:18)
[2019-01-28] MEDS: ACETAMINOPHEN 325 MG TABLET PO PRN (22:23)
[2019-01-29 07:00] VITALS: BP 145/68
[2019-01-29] MEDS: CITALOPRAM 20 MG TABLET PO SCH (08:26)
[2019-01-29] MEDS: ASPIRIN 81 MG TABLET CHEW PO SCH (08:26)
[2019-01-29] MEDS: FAMOTIDINE 20 MG TABLET PO SCH (08:26)
[2019-01-29] MEDS: METOPROLOL TARTRATE 25 MG TABLET PO SCH (08:26)
== END 2019-01-29 13:25 | disposition home or self-care (01) | DRG 885 ==
LOC: 3E 10:13 → UNDOADMIN 10:13 → 3E 11:35
PROVIDERS: ADMIT Psychiatry & Neurology Psychosomatic Medicine; ATTEND Psychiatry & Neurology Psychosomatic Medicine
DX: F33.2 Major depressive disorder, recurrent severe without psychotic features (principal); R45.851 Suicidal ideations; Q21.0 Ventricular septal defect; E78.5 Hyperlipidemia, unspecified; F43.10 Post-traumatic stress disorder, unspecified; F60.3 Borderline personality disorder; I10 Essential (primary) hypertension; G89.29 Other chronic pain; I25.10 Atherosclerotic heart disease of native coronary artery without angina pectoris; I44.7 Left bundle-branch block, unspecified; K21.9 Gastro-esophageal reflux disease without esophagitis; R55 Syncope and collapse; M25.552 Pain in left hip; R60.9 Edema, unspecified; Z86.73 Personal history of transient ischemic attack (TIA), and cerebral infarction without residual deficits; Z79.82 Long term (current) use of aspirin; Z79.899 Other long term (current) drug therapy; Z88.5 Allergy status to narcotic agent
CPT/HCPCS: 36415; 80053; 80061; 81001; 82140; 82607; 84436; 84443; 85025; 85651; 86592; 87086; 93005; Q0162

== ENCOUNTER 2019-07-19 12:44 | Emergency (ER) | payer MEDICARE ==
[~2019-07-19] VITALS: Ht 162.6 cm; Wt 51.4 kg
[~2019-07-19 12:44] MED LIST changes: +CITA20TA9 PO; +LISI1TAB20 PO; -LISI1TAB7 PO; +OLAN2.5T10 PO; +TRAZ50TA66 PO
[2019-07-19 13:06] VITALS: BP 134/59
--- NOTE | 2019-07-19 14:35 | NUR ---
ALL IMAGING COMPLETE.
== END 2019-07-19 14:47 | disposition home or self-care (01) ==
LOC: ED 14:41
DX: S00.83XA Contusion of other part of head, initial encounter (principal); S09.90XA Unspecified injury of head, initial encounter; R51 Headache; I10 Essential (primary) hypertension; Z86.73 Personal history of transient ischemic attack (TIA), and cerebral infarction without residual deficits; W18.30XA Fall on same level, unspecified, initial encounter; Y93.89 Activity, other specified; Y92.009 Unspecified place in unspecified non-institutional (private) residence as the place of occurrence of the external cause; Y99.8 Other external cause status
CPT/HCPCS: 70450; 70486; 72125; 99284

== ENCOUNTER 2019-12-18 19:15 | Observation (INO) | payer MEDICARE ==
[~2019-12-18] VITALS: Ht 162.6 cm; Wt 50.0 kg
--- NOTE | 2019-12-18 19:31 | NUR ---
PT BIB EMS, PT REPORTS STERNAL CP WITHOUT RADIATION "ALL DAY", AND BILATERAL LEG PAIN STARTING APPX 30 MIN AGO. PT REPORTS SUDDEN ONSET OF SOB WHEN TRANSFERED FROM EMS [facility]. PT DENIES ANY OTHER C/O AT THIS TIME. PT AOX4, NEURO INTACT. PT PROVIDED 324 ASA BY EMS. PT CONNECTED TO ALL MONITORING, EKG PERFORMED UPON ARRIVAL, CALL LIGHT WITHIN REACH. ERP IN ROOM TO EVAL PT.
[2019-12-18] MEDS ORDERED: MORPHINE SULFATE 4 MG/ML, 1ML ONE (19:39)
[2019-12-18] MEDS ORDERED: ONDANSETRON 2MG/ML, 2ML ONE (19:39)
[2019-12-18 19:58] LABS: BASOPHILS # (AUTO) 0.03 x10^3/uL (0-0.1); BASOPHILS % (AUTO) 1 % (0-1); EOSINOPHILS # (AUTO) 0.18 x10^3/uL (0-0.4); EOSINOPHILS % (AUTO) 3 % (1-7); LYMPHOCYTES % (AUTO) 25 % (22-44); MD NO; MEAN CORPUSCULAR HEMOGLOBIN 31.8 pg (27.0-34.8); MEAN CORPUSCULAR HGB CONC 33.1 g/dL (32.4-35.8); MEAN CORPUSCULAR VOLUME 96.2 fL (80-100); MEAN PLATELET VOLUME 10.6 fL (7.4-10.4); MONOCYTES # (AUTO) 0.62 x10^3/uL (0.2-0.8); MONOCYTES % (AUTO) 9 % (2-9); NEUTROPHILS # (AUTO) 4.26 x10^3/uL (1.8-6.8); NEUTROPHILS % (AUTO) 63 % (42-75); PLATELET COUNT 178 x10^3/uL (130-400); RED BLOOD COUNT 3.93 x10^6/uL (3.82-5.3); RED CELL DISTRIBUTION WIDTH 15.5 % (9.6-15.2)
[2019-12-18] MEDS ORDERED: SODIUM CHLORIDE FLUSH 10ML SYR IVF ONE (20:00)
[2019-12-18] MEDS ORDERED: MORPHINE SULFATE 4 MG/ML, 1ML IVPush PRN (20:00)
[2019-12-18] MEDS ORDERED: ONDANSETRON 2MG/ML, 2ML IVPush ONE (20:00)
[2019-12-18 20:06] LABS: ALANINE AMINOTRANSFERASE 28 U/L (12-78); ALBUMIN 3.9 g/dL (3.4-5.0); ANION GAP 7 mmol/L (5-15); CALCIUM 8.7 mg/dL (8.5-10.1); CHLORIDE 103 mmol/L (98-107); CREATININE 1.02 mg/dL (0.55-1.02)
[2019-12-18 20:10] LABS: ALKALINE PHOSPHATASE 80 U/L (45-117); BILIRUBIN,TOTAL 0.3 mg/dL (0.2-1.0); TOTAL PROTEIN 7.7 g/dL (6.4-8.2); TROPONIN I 0.024 ng/mL (0.000-0.045)
--- NOTE | 2019-12-18 20:41 | NUR ---
US IN ROOM AT THIS TIME. PT REPORTS NO CURRENT CP, PT REPORTS PAIN IN LEGS 8/10.
--- NOTE | 2019-12-18 20:55 | NUR ---
Dale Davis ( brother ) [phone] need some update.
--- NOTE | 2019-12-18 21:39 | NUR ---
HOSPITALIST IN ROOM AT THIS TIME.
--- NOTE | 2019-12-18 21:50 | NUR ---
PT TO IMAGING AT THIS TIME.
[2019-12-18] MEDS ORDERED: ONDANSETRON 2MG/ML, 2ML IVPush PRN (22:00)
[2019-12-18] MEDS ORDERED: ACETAMINOPHEN 325 MG TABLET PO PRN (22:00)
--- NOTE | 2019-12-18 22:08 | NUR ---
REPORT GIVEN TO BROOKLYNN INTERIANO.
--- NOTE | 2019-12-18 22:17 | NUR ---
PT BACK FROM IMAGING AT THIS TIME.
--- NOTE | 2019-12-18 22:45 | NUR ---
TASK RN: PT ABLE TO STAND AND TAKE A FEW STEPS. ERP/HOSPITALIST AWARE.
[2019-12-18] MEDS ORDERED: ASPIRIN 81 MG MC SCH (23:00)
--- NOTE | 2019-12-18 23:07 | NUR ---
PT ABLE TO AMBULATE WITH STEADY GAIT. NO NEW ORDERS FROM HOSPITALIST AT THIS TIME.
[2019-12-18 23:30] VITALS: BP 160/74
[2019-12-19 04:17] LABS: BASOPHILS # (AUTO) 0.05 x10^3/uL (0-0.1); BASOPHILS % (AUTO) 1 % (0-1); EOSINOPHILS # (AUTO) 0.21 x10^3/uL (0-0.4); EOSINOPHILS % (AUTO) 3 % (1-7); LYMPHOCYTES # (AUTO) 1.35 x10^3/uL (1-3.4); LYMPHOCYTES % (AUTO) 20 % (22-44); MD NO; MEAN CORPUSCULAR HEMOGLOBIN 31.4 pg (27.0-34.8); MEAN CORPUSCULAR HGB CONC 32.4 g/dL (32.4-35.8); MEAN PLATELET VOLUME 10.6 fL (7.4-10.4); MONOCYTES # (AUTO) 0.59 x10^3/uL (0.2-0.8); MONOCYTES % (AUTO) 9 % (2-9); NEUTROPHILS # (AUTO) 4.56 x10^3/uL (1.8-6.8); NEUTROPHILS % (AUTO) 67 % (42-75); PLATELET COUNT 167 x10^3/uL (130-400); RED BLOOD COUNT 3.89 x10^6/uL (3.82-5.3); RED CELL DISTRIBUTION WIDTH 15.4 % (9.6-15.2)
[2019-12-19 04:29] LABS: ANION GAP 6 mmol/L (5-15); CALCIUM 8.1 mg/dL (8.5-10.1); CHLORIDE 103 mmol/L (98-107)
[2019-12-19 04:35] LABS: CREATININE 0.95 mg/dL (0.55-1.02); TROPONIN I 0.058 ng/mL (0.000-0.045)
[2019-12-19 04:52] VITALS: BP 126/66
[2019-12-19] MEDS ORDERED: ASPIRIN 81 MG TABLET EC PO SCH (06:00)
[2019-12-19] MEDS ORDERED: ASPIRIN 325 MG TABLET EC PO SCH (06:00)
[2019-12-19 06:55] VITALS: BP 157/81
[2019-12-19] MEDS ORDERED: CITALOPRAM 20 MG TABLET PO SCH (09:00)
[2019-12-19] MEDS ORDERED: DULOXETINE 30 MG CAPSULE.DR PO SCH (09:00)
[2019-12-19] MEDS ORDERED: FAMOTIDINE 20 MG TABLET PO SCH (09:00)
[2019-12-19] MEDS ORDERED: METOPROLOL TARTRATE 25 MG TAB PO SCH (09:00)
[2019-12-19] MEDS ORDERED: REGADENOSON 0.4 MG/5 ML SYRINGE ONE (10:15)
[2019-12-19 15:00] LABS: TROPONIN I 0.054 ng/mL (0.000-0.045)
[2019-12-19] MEDS ORDERED: ATORVASTATIN 20 MG TABLET PO SCH (21:00)
[2019-12-19] MEDS ORDERED: OLANZAPINE 2.5 MG TABLET PO SCH (21:00)
[2019-12-20] MEDS ORDERED: FAMOTIDINE 20 MG TABLET PO SCH (09:00)
== END 2019-12-19 18:26 | disposition home or self-care (01) ==
LOC: ED 20:25 → EDIP 22:03 → INTOOBSV 22:03 → 5SO 23:25
DX: R07.89 Other chest pain (principal); I25.10 Atherosclerotic heart disease of native coronary artery without angina pectoris; I10 Essential (primary) hypertension; I25.2 Old myocardial infarction; F32.9 Major depressive disorder, single episode, unspecified; I44.7 Left bundle-branch block, unspecified; Q21.0 Ventricular septal defect; K21.9 Gastro-esophageal reflux disease without esophagitis; I69.359 Hemiplegia and hemiparesis following cerebral infarction affecting unspecified side; R45.851 Suicidal ideations; F03.90 Unspecified dementia, unspecified severity, without behavioral disturbance, psychotic disturbance, mood disturbance, and anxiety; Z79.899 Other long term (current) drug therapy
CPT/HCPCS: 36415; 71045; 71275; 74220; 78452; 80048; 80053; 83735; 83880; 84100; 84484; 85025; 85379; 92610; 93005; 93017; 93970; 96374; 96375; 99285; A9502; G0378; J2270; J2405; J2785

== ENCOUNTER 2020-09-28 09:53 | Observation (INO) | payer MEDICARE ==
[~2020-09-28] VITALS: Ht 162.6 cm; Wt 57.0 kg
--- NOTE | 2020-09-28 10:08 | NUR ---
[facility] FROM [facility]. PT STATES SHE WAS AT THE [facility] AND HAD CP AND SOB. PT TOLE SOMEONE THERE AND 911 WAS CALLED. PT WAS UNCOSCIOUS ON ARRIVAL PER EMS. PT UNCOSCIOUS UNTIL THIS RN ATTEMPTED TO ASSESS PT'S PUPILLARY RESPONSE. PT AWOKE AND STARTED RESPONDING APPROPRIATELY. STATES "THE PAIN WAS SO BAD I THINK I BLACKED OUT". STATES CP 8/10 STARTED " A LITTLE WHILE AGO" WORSE ON PALPATION. HX 4 GA'S. RECEIVED FIRST COVID VACCINE 3 DAYS AGO. PT STATES SHE HAS CP WHEN SHE IS STRESSED. STATES HER NEW HOUSEMATE KEEPS HER AWAKE ALL NIGHT AFFECTING PT SLEEP. STATES "I THINK THAT'S WHAT STARTED IT". PT RESTING ON GURNEY. NADN. AOX4. NEURO INTACT.
[2020-09-28] MEDS ORDERED: ONDANSETRON 2MG/ML, 2ML ONE (10:22)
[2020-09-28] MEDS ORDERED: MORPHINE SULFATE 4 MG/ML, 1ML ONE (10:22)
[2020-09-28] MEDS ORDERED: SODIUM CHLORIDE FLUSH 10ML SYR IVF ONE (10:30)
[2020-09-28] MEDS ORDERED: MORPHINE SULFATE 4 MG/ML, 1ML IVPush PRN (10:30)
[2020-09-28] MEDS ORDERED: ONDANSETRON 2MG/ML, 2ML IVPush ONE (10:30)
--- NOTE | 2020-09-28 10:40 | NUR ---
PT STATES IMMEDIATE RELIEF FROM PAIN 0/10 AFTER ADMIN OF MEDICATION. STATES "I'M HIGH A KITE". PT TO RESTROOM AND BACK TO LORI Rodriguez/ DIONICIO OVERTON FOR ASSISTANCE.
[2020-09-28] MEDS ORDERED: CHOL10003 PO (10:44)
[2020-09-28] MEDS ORDERED: CALC-500 PEG (10:44)
[2020-09-28] MEDS ORDERED: POTA10CA PO (10:44)
[2020-09-28 10:55] LABS: BASOPHILS % (AUTO) 1 % (0-1); EOSINOPHILS % (AUTO) 3 % (1-7); LYMPHOCYTES % (AUTO) 23 % (22-44); MEAN CORPUSCULAR HEMOGLOBIN 31.1 pg (27.0-34.8); MEAN PLATELET VOLUME 10.5 fL (7.4-10.4); MONOCYTES % (AUTO) 10 % (2-9); NEUTROPHILS % (AUTO) 64 % (42-75); PLATELET COUNT 212 x10^3/uL (130-400); RED BLOOD COUNT 4.44 x10^6/uL (3.82-5.3); RED CELL DISTRIBUTION WIDTH 15.7 % (9.6-15.2)
--- NOTE | 2020-09-28 10:56 | NUR ---
REPORT GIVEN TO BROOKLYNN MULLEN.
[2020-09-28 10:57] LABS: MD NO
[2020-09-28 11:08] LABS: ALANINE AMINOTRANSFERASE 21 U/L (12-78); ALBUMIN 4.2 g/dL (3.4-5.0); ANION GAP 7 mmol/L (5-15); CALCIUM 8.8 mg/dL (8.5-10.1); CHLORIDE 106 mmol/L (98-107); CREATININE 1.12 mg/dL (0.55-1.02)
[2020-09-28 11:12] LABS: ALKALINE PHOSPHATASE 101 U/L (45-117); BILIRUBIN,TOTAL 0.5 mg/dL (0.2-1.0); TOTAL PROTEIN 8.2 g/dL (6.4-8.2); TROPONIN I 0.034 ng/mL (0.000-0.045)
[2020-09-28] MEDS ORDERED: ONDANSETRON ODT 4 MG PO PRN (12:30)
[2020-09-28] MEDS ORDERED: ACETAMINOPHEN 325 MG TABLET PO PRN (12:30)
[2020-09-28] MEDS ORDERED: ONDANSETRON 2MG/ML, 2ML IVPush PRN (12:30)
[2020-09-28] MEDS ORDERED: ENALAPRILAT 1.25 MG/ML, 2ML IVPush PRN (12:30)
--- NOTE | 2020-09-28 12:42 | NUR ---
REPORT GIVEN TO RAYNE OVERTON.
[2020-09-28 13:08] VITALS: BP 155/72
[2020-09-28 13:12] LABS: TROPONIN I 0.031 ng/mL (0.000-0.045)
[2020-09-28] MEDS ORDERED: HALOPERIDOL 5 MG/ML IV PRN (15:00)
[2020-09-28 18:39] LABS: TROPONIN I 0.034 ng/mL (0.000-0.045)
[2020-09-28 20:03] VITALS: BP 112/57
[2020-09-28] MEDS: FAMOTIDINE 20 MG TABLET PO SCH (20:18)
[2020-09-28] MEDS ORDERED: TRAZODONE 50MG TABLET PO SCH (21:00)
[2020-09-28] MEDS ORDERED: METOPROLOL TARTRATE 25 MG TAB PO SCH (21:00)
[2020-09-28] MEDS ORDERED: ATORVASTATIN 20 MG TABLET PO SCH (21:00)
[2020-09-29 00:55] VITALS: BP 112/64
[2020-09-29 05:26] LABS: BASOPHILS % (AUTO) 1 % (0-1); EOSINOPHILS % (AUTO) 4 % (1-7); LYMPHOCYTES % (AUTO) 17 % (22-44); MEAN CORPUSCULAR HEMOGLOBIN 31.5 pg (27.0-34.8); MEAN CORPUSCULAR HGB CONC 33.3 g/dL (32.4-35.8); MEAN PLATELET VOLUME 10.8 fL (7.4-10.4); MONOCYTES % (AUTO) 10 % (2-9); NEUTROPHILS % (AUTO) 68 % (42-75); PLATELET COUNT 168 x10^3/uL (130-400); RED CELL DISTRIBUTION WIDTH 15.7 % (9.6-15.2)
[2020-09-29 05:28] LABS: MD NO
[2020-09-29 05:40] LABS: CHLORIDE 105 mmol/L (98-107)
[2020-09-29 05:44] LABS: ANION GAP 5 mmol/L (5-15); CALCIUM 8.2 mg/dL (8.5-10.1); CREATININE 1.13 mg/dL (0.55-1.02)
[2020-09-29] MEDS ORDERED: ASPIRIN 325 MG TABLET EC PO SCH (06:00)
[2020-09-29 07:53] VITALS: BP 109/57
[2020-09-29] MEDS: FAMOTIDINE 20 MG TABLET PO SCH (08:29)
[2020-09-29] MEDS ORDERED: FUROSEMIDE 20 MG TABLET PO SCH (09:00)
[2020-09-29] MEDS ORDERED: CHOLECALCIFEROL 1,000 UNIT TABLET PO SCH (09:00)
[2020-09-29] MEDS ORDERED: METO25TA35 PO ×2 (09:00)
[2020-09-29] MEDS ORDERED: CITALOPRAM 20 MG TABLET PO SCH (09:00)
== END 2020-09-29 11:00 | disposition home or self-care (01) ==
LOC: ED 11:34 → SUATTDRO 12:04 → EDIP 12:37 → INTOOBSV 12:37 → 5SO 12:57 → DCLOUNGE 09-29 10:50
PROVIDERS: ADMIT Hospitalist; ATTEND Hospitalist
DX: R07.89 Other chest pain (principal); I25.10 Atherosclerotic heart disease of native coronary artery without angina pectoris; I12.9 Hypertensive chronic kidney disease with stage 1 through stage 4 chronic kidney disease, or unspecified chronic kidney disease; N18.30 Chronic kidney disease, stage 3 unspecified; I95.9 Hypotension, unspecified; F32.9 Major depressive disorder, single episode, unspecified; G47.00 Insomnia, unspecified; F03.90 Unspecified dementia, unspecified severity, without behavioral disturbance, psychotic disturbance, mood disturbance, and anxiety; R00.1 Bradycardia, unspecified; Z79.82 Long term (current) use of aspirin; Z79.899 Other long term (current) drug therapy; Z86.73 Personal history of transient ischemic attack (TIA), and cerebral infarction without residual deficits; Z66 Do not resuscitate
CPT/HCPCS: 36415; 71045; 80048; 80053; 83605; 84484; 85025; 93005; 93306; 96374; 96375; 99285; G0378; J2270; J2405

== ENCOUNTER 2021-01-24 21:59 | Observation (INO) | payer MEDICARE ==
[~2021-01-24] VITALS: Ht 162.6 cm; Wt 58.4 kg
[~2021-01-24 21:59] MED LIST changes: +CALC-500 PEG; +CHOL10003 PO; +POTA10CA PO
--- NOTE | 2021-01-24 22:26 | NUR ---
PT. TO ED38 FROM [facility] AT THIS TIME.
--- NOTE | 2021-01-24 22:42 | NUR ---
EKG DONE UPON ARRIVAL TO ROOM. DR. ACOSTA IN TO EVAL PT. AND DISCUSS POC. ALL MONITORS PLACD. PT. WITH LBBB AND FREQUENT PVC'S ON MONITOR. PT. ASSISTED TO BS COMMODE AND BACK TO [facility].
[2021-01-24] MEDS ORDERED: ASPIRIN 81 MG TABLET CHEW ONE (22:47)
[2021-01-24] MEDS ORDERED: ASPIRIN 81 MG TABLET CHEW PO ONE (23:00)
[2021-01-24 23:10] LABS: BASOPHILS % (AUTO) 1 % (0-1); EOSINOPHILS % (AUTO) 3 % (1-7); LYMPHOCYTES % (AUTO) 19 % (22-44); MEAN CORPUSCULAR HGB CONC 33.8 g/dL (32.4-35.8); MEAN PLATELET VOLUME 11.2 fL (7.4-10.4); MONOCYTES % (AUTO) 10 % (2-9); NEUTROPHILS % (AUTO) 68 % (42-75); PLATELET COUNT 143 x10^3/uL (130-400); RED BLOOD COUNT 4.05 x10^6/uL (3.82-5.3); RED CELL DISTRIBUTION WIDTH 14.6 % (9.6-15.2)
[2021-01-24 23:11] LABS: ALBUMIN 3.5 g/dL (3.4-5.0); ANION GAP 5 mmol/L (5-15); CALCIUM 7.7 mg/dL (8.5-10.1); CHLORIDE 105 mmol/L (98-107)
[2021-01-24 23:17] LABS: ALANINE AMINOTRANSFERASE 28 U/L (12-78); ALKALINE PHOSPHATASE 88 U/L (45-117); BILIRUBIN,TOTAL 0.3 mg/dL (0.2-1.0); CREATININE 1.04 mg/dL (0.55-1.02); TOTAL PROTEIN 7.1 g/dL (6.4-8.2); TROPONIN I 0.043 ng/mL (0.000-0.045)
--- NOTE | 2021-01-24 23:35 | NUR ---
PT. RESTING ON GURNEY WITH NO DISTRESS NOTED. VS UPDATED. PT. DENIES NEEDS.
[2021-01-25] VITALS (9 sets, daily range): BP systolic 147–186; BP diastolic 62–95
[2021-01-25] MEDS ORDERED: ALPR0.254 PO (00:46)
[2021-01-25] MEDS ORDERED: METO25TA35 PO (00:46)
--- NOTE | 2021-01-25 01:16 | NUR ---
FIRST ATTEMPT TO CALL REPORT TO FLOOR.
[2021-01-25] MEDS ORDERED: ACETAMINOPHEN 325 MG TABLET PO PRN (01:30)
[2021-01-25] MEDS ORDERED: NITROGLYCERIN 0.4 MG BOTTLE (25 TABS) SL PRN (01:30)
[2021-01-25] MEDS ORDERED: LABETALOL 5MG/ML, 20ML IVPush PRN (01:30)
[2021-01-25] MEDS ORDERED: morphine SULFATE 10 MG/ML, 1ML IV PRN (01:30)
[2021-01-25] MEDS ORDERED: POTASSIUM CHLORIDE 20 MEQ TAB.ER.PRT PO ONE (01:30)
--- NOTE | 2021-01-25 01:34 | NUR ---
2ND ATTEMPT TO CALL REPORT TO FLOOR.
--- NOTE | 2021-01-25 01:39 | NUR ---
REPORT TO BROOKLYNN BALLARD. FLOOR READY FOR PT. TRANSPORT.
[2021-01-25 02:03] LABS: TROPONIN I 0.082 ng/mL (0.000-0.045)
[2021-01-25] MEDS: ASPIRIN 81 MG TABLET EC PO SCH (06:24)
[2021-01-25] MEDS ORDERED: REGADENOSON 0.4 MG/5 ML SYRINGE ONE (08:41)
[2021-01-25] MEDS ORDERED: METOPROLOL TARTRATE 25 MG TAB PO SCH (09:00)
[2021-01-25] MEDS ORDERED: FAMOTIDINE 20 MG TABLET PO SCH (09:00)
[2021-01-25 09:01] LABS: TROPONIN I 0.105 ng/mL (0.000-0.045)
[2021-01-25] MEDS: CITALOPRAM 20 MG TABLET PO SCH (11:22)
[2021-01-25] MEDS: FUROSEMIDE 20 MG TABLET PO SCH (11:22)
[2021-01-25] MEDS: POTASSIUM CHLORIDE 10 MEQ TABLET.ER PO SCH (11:22)
[2021-01-25 14:00] LABS: TROPONIN I 0.093 ng/mL (0.000-0.045)
[2021-01-25] MEDS: METOPROLOL TARTRATE 25 MG TAB PO SCH ×2 (17:15→21:00)
[2021-01-25] MEDS ORDERED: TRAZODONE 50MG TABLET PO SCH (21:00)
[2021-01-25] MEDS ORDERED: ATORVASTATIN 20 MG TABLET PO SCH (21:00)
[2021-01-25] MEDS: LISINOPRIL 10 MG TABLET PO SCH (22:12)
[2021-01-26 02:24] VITALS: BP 138/70
[2021-01-26 04:52] LABS: ANION GAP 7 mmol/L (5-15); CALCIUM 7.8 mg/dL (8.5-10.1); CHLORIDE 106 mmol/L (98-107); CREATININE 0.84 mg/dL (0.55-1.02)
[2021-01-26] MEDS: ASPIRIN 81 MG TABLET EC PO SCH (06:05)
[2021-01-26 06:59] VITALS: BP 144/67
[2021-01-26 07:46] VITALS: BP 144/64
[2021-01-26 07:47] VITALS: BP 132/66
[2021-01-26 07:50] VITALS: BP 136/55
[2021-01-26] MEDS ORDERED: ISOSORBIDE MONONITRATE ER 30 MG TABLET PO SCH (09:00)
[2021-01-26] MEDS ORDERED: FAMOTIDINE 20 MG TABLET PO SCH (09:00)
[2021-01-26] MEDS: FUROSEMIDE 20 MG TABLET PO SCH (09:47)
[2021-01-26] MEDS: POTASSIUM CHLORIDE 10 MEQ TABLET.ER PO SCH (09:47)
[2021-01-26] MEDS: CITALOPRAM 20 MG TABLET PO SCH (09:47)
[2021-01-26] MEDS: LISINOPRIL 10 MG TABLET PO SCH (09:48)
[2021-01-26] MEDS: METOPROLOL TARTRATE 25 MG TAB PO SCH (09:48)
[2021-01-26] MEDS ORDERED: ISOS30TA8 PO (11:06)
== END 2021-01-26 13:10 | disposition home or self-care (01) ==
LOC: ED 01-25 00:27 → INTOOBSV 01-25 01:06 → EDIP 01-25 01:06 → 5SO 01-25 01:53 → DCLOUNGE 01-26 12:58
PROVIDERS: ADMIT Family Medicine; ATTEND Internal Medicine
DX: R07.89 Other chest pain (principal); I13.0 Hypertensive heart and chronic kidney disease with heart failure and stage 1 through stage 4 chronic kidney disease, or unspecified chronic kidney disease; I50.32 Chronic diastolic (congestive) heart failure; N18.30 Chronic kidney disease, stage 3 unspecified; I25.110 Atherosclerotic heart disease of native coronary artery with unstable angina pectoris; I44.7 Left bundle-branch block, unspecified; M40.209 Unspecified kyphosis, site unspecified; E87.6 Hypokalemia; E78.00 Pure hypercholesterolemia, unspecified; I27.20 Pulmonary hypertension, unspecified; E78.5 Hyperlipidemia, unspecified; K21.9 Gastro-esophageal reflux disease without esophagitis; F41.8 Other specified anxiety disorders; Z79.82 Long term (current) use of aspirin; Z79.899 Other long term (current) drug therapy; Z86.73 Personal history of transient ischemic attack (TIA), and cerebral infarction without residual deficits
CPT/HCPCS: 36415; 71045; 78452; 80048; 80053; 83735; 84484; 85025; 93005; 93017; 99285; A9502; C9898; G0378; J2785